=== PATIENT | female | born 1945 | race American Indian/Alaskan Native ===

== ENCOUNTER 2022-03-19 10:05 | Day surgery (SDC) | payer MEDICARE ==
[~2022-03-19 10:05] MED LIST: LACTATED RINGERS 1,000 ML IV SCH
[2022-03-19] MEDS ORDERED: HYDROcodone/ACETAMINOPHEN 5-325 MG TAB PO PRN (11:16)
[2022-03-19] MEDS ORDERED: fentaNYL 100 MCG/2 ML INJ IV PRN (11:16)
--- NOTE | 2022-03-19 11:16 | Anesthesia Day of Surgery ---
Anesthesia Day of Surgery - Day of Surgery Patient Examined: Yes Patient H&P Reviewed: Yes Patient is NPO: Yes
--- NOTE | 2022-03-19 11:16 | Anesthesia Consultation ---
Anesthesia Consult and Med Hx Date of service: 03/19/22 - Airway Anesthetic Teeth Evaluation: Edentulous ROM Head & Neck: Adequate Mental/Hyoid Distance: Adequate Mallampati Class: Class II Intubation Access Assessment: Probably Good - Pre-Operative Health Status ASA Pre-Surgery Classification: ASA3 Proposed Anesthetic Plan: General - Pulmonary Hx Smoking: Yes (8cigs/day) COPD: Yes (recent dx; took maintenance inhaler today) Home Oxygen Therapy: No - Cardiovascular System Hx Hypertension: Yes (off ASA >1wk) - Central Nervous System CVA: No - Endocrine Hx Renal Disease: Yes (CKD) Hx Liver Disease: No Hx Insulin Dependent Diabetes: No Hx Non-Insulin Dependent Diabetes: No Hx Thyroid Disease: No - Additional Comments Anesthesia Medical History Comments: No hx anesthetic complications.
[2022-03-19] MEDS ORDERED: propofoL 200 MG/20 ML VIAL IV ONE (12:39)
[2022-03-19] MEDS ORDERED: LIDOCAINE MPF (2%) 20 MG/1 ML VIAL 5 ML ONE (12:39)
[2022-03-19] MEDS ORDERED: HYDROmorphone 0.5 MG/0.5 ML INJ ONE (12:39)
[2022-03-19] MEDS ORDERED: ceFAZolin/Water 2 GM/20 ML 2 GM/20 ML SYRINGE IV ONE (13:02)
[2022-03-19] MEDS ORDERED: IOHEXOL 300 MG/ML 50ML IV ONE (14:03)
[2022-03-19] MEDS ORDERED: WATER FOR IRRIG STERILE 2000 ML IR ONE (14:05)
[2022-03-19] MEDS ORDERED: ONDANSETRON 4 MG/2 ML INJ ONE (14:26)
[2022-03-19] MEDS ORDERED: FUROSEMIDE 40 MG/4 ML INJ ONE (14:26)
--- NOTE | 2022-03-19 14:38 | Post Operative Note ---
Date of procedure: 03/19/22 Pre-op diagnosis: pain heme posst xrt Post-op diagnosis: same Findings: erythema Procedure: cysto r rpg biopsy Anesthesia: GETA Surgeon: DORA ANGELA Pathology: list (bladder) Specimen disposition: to lab Condition: stable Disposition: PACU
--- NOTE | 2022-03-19 14:39 | Discharge Summary ---
Short Stay Discharge Plan Activity: other (no strinaing) Weight Bearing Status: Full Weight Bearing Diet: low fat, low cholesterol, low salt Special Instructions: home health RN (fluids ), other Durable Medical Equipment Needed Upon Discharge: other (home wityh jean baptiste x 24 hrs ) Follow up with: GUILLERMO KO MD [Primary Care Provider] - 7 Days
--- NOTE | 2022-03-19 16:40 | Post Anesthesia Evaluation ---
- Post Anesthesia Evaluation Patient Participated: Yes Airway Patent: Yes Stable Respiratory Function: Yes Nausea/Vomiting: No Temp > 96.8F: Yes Pain Manageable: Yes Adequeate Hydration: Yes Anesthesia Complications: No
--- NOTE | 2022-03-19 16:49 | Fluoroscopy Report ---
INTRAOPERATIVE FLUOROSCOPY: INDICATION / CLINICAL INFORMATION: OVERACTIVE BLADDER, HX OF RADIATION.. TECHNIQUE: Intraoperative spot images were obtained during the procedure. FINDINGS: 3 images are obtained for right retrograde ureterogram. There is normal filling of the right ureter. No filling defects are seen. Fluoroscopy Time: 6 seconds. Fluoroscopy Images: 3. Signer Name: José Miguel Cramer MD Signed: 03/19/2022 4:45 PM Workstation Name: [id number]
[2022-03-19 16:59] VITALS: BP 116/74
--- NOTE | 2022-03-19 18:35 | Operative Report ---
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 PROCEDURES: Cystoscopy, biopsy, right retrograde. SURGEON: Petey Brothers MD ANESTHESIA: General. 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 She has had mildly urethral prolapse and bladder prolapse and a foreshortened vagina. She now presents for cystoscopy. Cystoscopy in the office showed erythematous patches. She now presents for treatment and evaluation. DESCRIPTION OF PROCEDURE: The patient was brought to the operating room and placed on the operating table. Following induction of anesthesia, placed in a lithotomy position, prepped and draped in usual sterile fashion. The urethra was patulous and protuberant. The bladder was partially down with a very shortened vagina. Cystoscopy showed a cystocele. The right orifice was visualized. The left was flat and very small. There were erythematous areas posteriorly, biopsied. Cytology was sent. Retrograde on the right showed delicate ureter. There was no blood from either orifice. We did not want to manipulate too much on the left orifice because it was so small and previous radiation. The patient tolerated the procedure well and brought to recovery room with a catheter, will leave that for 24 hours in stable condition. TID: [id number] RECEIPT: [id number] BRENT/SIERRA/BEVERLEY
== END 2022-03-19 16:25 | disposition home or self-care (01) ==
LOC: OR 10:05
PROVIDERS: ATTEND Urology
DX: N32.89 Other specified disorders of bladder (principal); E78.00 Pure hypercholesterolemia, unspecified; J44.9 Chronic obstructive pulmonary disease, unspecified; K21.9 Gastro-esophageal reflux disease without esophagitis; I12.9 Hypertensive chronic kidney disease with stage 1 through stage 4 chronic kidney disease, or unspecified chronic kidney disease; N18.9 Chronic kidney disease, unspecified; M19.90 Unspecified osteoarthritis, unspecified site; Z85.44 Personal history of malignant neoplasm of other female genital organs; F17.210 Nicotine dependence, cigarettes, uncomplicated; Z79.899 Other long term (current) drug therapy; Z79.82 Long term (current) use of aspirin; Z98.49 Cataract extraction status, unspecified eye; Z90.710 Acquired absence of both cervix and uterus; Z98.890 Other specified postprocedural states
CPT/HCPCS: 52204; 74420; 88305; C1758; J0690; J1170; J1940; J2405; J2704; J3010; J7120; Q9967